=== PATIENT | female | born 1985 | race African-American/Black ===

== ENCOUNTER 2018-11-28 05:20 | Day surgery (SDC) | payer OTHER ==
[2018-11-19 10:26] VITALS: BMI 48.4
--- NOTE | 2018-11-28 07:16 | HP ---
[facility] - Chief Complaint Chief Complaint: This patient is admitted for a leep for moderate cervical uterine dyplasia. History of Present Illness: This patient had an abnormal pap test . This was followed by colposcopy revealing AJ-3. Patient is now aditted to treat this problem. History Source: Patient Limitations to Obtaining History: No Limitations - Past Medical History Allergies/Adverse Reactions: Allergies Allergy/AdvReac Type Severity Reaction Status Date / Time No Known Allergies Allergy Verified 11/28/18 06:42 [employer] CLAIMS ADJUSTER: No: Alzheimer's, CVA, Dementia, Migraine, Multiple Sclerosis, Peripheral Neuropathy, Parkinson's, Seizure, Syncope, TIA, Vertigo, Other Cardiovascular: No: AFIB, Aneurysm, Aortic Insufficiency, Aortic Stenosis, CAD, CHF, Deep Vein Thrombosis, HTN, Hyperlipdemia, NM, Mitral Insufficiency, Mitral Stenosis, Murmur, Pulmonary Hypertension, Other Pulmonary: No: Asthma, Bronchitis, Cancer, COPD, O2 Dependent, Pneumonia, Previously Intubated, Pulmonary Embolus, Pulmonary Fibrosis, Sleep Apnea, Other Gastrointestinal: No: Ascites, Cancer, Constipation, Crohn's Disease, Diverticulitis, Diverticulosis, Esophageal Varices, Gastritis, GERD, GI Bleed, Hemorrhoids, Hiatal Hernia, Inflamatory Bowel Disease, Irritable Bowel Disease, Pancreatitis, Peptic Ulcer Disease, Ulcerative Colitis, Other Hepatobiliary: No: Cirrhosis, Cholelithiasis, Cholecystitis, Choledocholithiasis , Hepatitis A, Hepatitis B, Hepatitis C, Other Renal/: No: Renal Failure, Renal Inusuff, BPH, Cancer, Hematuria, Hemodialysis , Neurogenic Bladder, Renal Calculi, UTI, Other Reproductive: No: Ectopic , Endometriosis, Fibroids, PID, Polycystic Ovary Syndrome, Postmenopausal, Other ...LMP: 11/14/18 ...LMP Comment: regular ...: No ...: 1 ...Para: 1 Heme/Onc: No: Anemia, B12 Deficiency, Bleeding Disorder, Cancer, Current Chemotherapy, Current Radiation Therapy, Hemochromatosis, Hypercoaguable State, Myeloproliferative Synd, Sickle Cell Disease, Sickle Cell Trait, Thrombocytopenia, Other Infectious Disease: No: AIDS, C-Diff, Herpes Zoster, HIV, MRSA, STD's, Tuberculosis, VREF, Other Musculoskeletal: No: Bursitis, Chronic low back pain, Hemiparesis, Hemiplegia, Osteoarthritis, Paraplegia, Other Rheumatology: No: Fibromyalgia, Gout, Lupus, Rheumatoid Arthritis, Sarcoidosis, Vasculitis, Other ENT: No: Allergic Rhinitis, Sinusitis, Other Endocrine: No: [place]'s Disease, [place]'s Disease, Diabetes Insipidus, Diabetes Mellitus, Hyperparathyroidism, Hyperthyroidism, Hypothyroidism, Osteopenia, SIADH, Other Dermatology: No: Basal Cell, Cellulitis, Eczema, Melanoma, Psoriasis, Squamous Cell, Other (1 C/S) - Current Medications Current Medications: Home Medications Medication Instructions Recorded Tylenol .Extra-Strength - 1,000 mg PO PRN PRN 11/19/18 Scapoline Patch 1 patch TD PRN PRN 11/28/18 Satellite Physical Exam - Physical Examination Vital Signs: Vital Signs Period Temp Pulse Resp BP Sys/Valdovinos Pulse Ox Last 24 Hr 97.9 F 80 18 116/68 98 General Appearance: Well Nourished, Well Developed, Alert & Oriented x3 ENT: Clear, No Discharge, No masses Lung: Clear to auscultation Heart: Regular rate & rhythm, Normal S1, Normal S2 Breasts: Soft, Non-Tender, No masses bilaterally Abdomen: Soft, No tenderness, No CVA Extremities: No edema, No tenderness/swelling Pelvic Exam: Within normal limits External Genitalia, Within normal limits Vagina, Within normal limits Cervix, Within normal limits Uterus, Within normal limits [facility]: Intact, Alert, Oriented Satellite Impression/Plan - Impression/Plan Impression: cervical uterine moderate dysplasia . Operative Procedure: Leep cone biopsy Date to be Performed: 11/28/18
[2018-11-28] MEDS ORDERED: MIDAZOLAM HCL 2 MG/2 ML SINGLE DOSE VIAL ONE (07:44)
[2018-11-28] MEDS ORDERED: ceFAZolin SODIUM 1 GM VIAL IVPB ONE (07:45)
[2018-11-28] MEDS ORDERED: SUCCINYLCHOLINE CHLORIDE 200 MG/10 ML SYRINGE ONE (07:49)
[2018-11-28] MEDS ORDERED: PROPOFOL 20 ML ONE ×3 (07:49)
[2018-11-28] MEDS ORDERED: ONDANSETRON 4 MG/2 ML VIAL IVPUSH PRN (08:38)
[2018-11-28] MEDS ORDERED: oxyCODONE HCL 5 MG TABLET PO PRN (08:38)
[2018-11-28] MEDS ORDERED: PROMETHAZINE HCL 25 MG/1 ML VIAL IVPUSH PRN (08:38)
[2018-11-28] MEDS ORDERED: LACTATED RINGERS SOLUTION 1,000 ML IV SCH (08:45)
--- NOTE | 2018-11-28 08:59 | OP ---
DATE OF OPERATION: 11/28/2018 PREOPERATIVE DIAGNOSIS: Moderate cervical dysplasia. POSTOPERATIVE DIAGNOSIS: Moderate cervical dysplasia. OPERATIVE PROCEDURE: Loop electrosurgical excision procedure cone biopsy. SURGEON: Shey Winter MD ANESTHESIA: A fractional type of anesthesia given by the anesthesiologist. ESTIMATED BLOOD LOSS: Approximately 2 mL. The patient was brought to the operating room, placed in a supine position, given anesthesia by the anesthesiologist, placed in the lithotomy position. The patient was prepped and draped in the usual manner for LEEP cone biopsy. A speculum was placed into the vagina. The cervix was exposed. Using a 1 x 2 loop at 50/50 wattage, a LEEP was carried out of the cervical tissue. Prior to that, the transformation zone was revealed using colposcopy. The patient tolerated the procedure well. The loop procedure was followed by a cauterization of the cervix using a 5-mm curette. This was done to enhance the LEEP procedure and also to control hemostasis. The patient did well. Hemostasis was good. The blood loss was approximately 2 mL. The patient was then transferred to the recovery room after the completion of the operation, and she was transferred in good condition. SHEY WINTER M.D. [id number]
[2018-11-28 10:51] VITALS: BP 122/66; PULSE 68; TEMP 97.5
--- NOTE | 2018-12-02 13:54 | PATH ---
Surgical Pathology Report Patient Name: NESSA BRAUN [facility]. Rec. #: [id number] /Age/Gender: 1985 (Age: 33) / F Account: [id number] Location: [facility] SURGICAL Taken: 11/28/2018 Received: 11/28/2018 Reported: 12/02/2018 Physicians: Scott Winter M.D. Specimen(s) Received CERVIX Clinical History Moderate cervical dysplasia Final Diagnosis CERVIX, LOOP ELECTROSURGICAL EXCISION PROCEDURE (LEEP)/CONE BIOPSY: CERVICAL SQUAMOUS AND ENDOCERVICAL MUCOSA WITH HIGH GRADE SQUAMOUS INTRAEPITHELIAL LESION (CERVICAL INTRAEPITHELIAL NEOPLASIA 2/ AJ 2); AREAS OF LOW GRADE SQUAMOUS INTRAEPITHELIAL LESION ALSO PRESENT. SURGICAL RESECTION MARGINS: FOCALLY POSITIVE FOR HIGH GRADE DYSPLASIA. TRANSFORMATION ZONE: NOT PRESENT. SEE COMMENT. Comment: Immunohistochemical stains performed at [place], [place] ([id number]) and interpreted at [facility] show p16 is diffusely and strongly positive. Proliferative marker for ki-67 utilized to evaluate this case. . Positive and negative controls (internal if applicable) show appropriate results. Electronically Signed Maryanne Childers M.D. Gross Description Received in formalin labeled "cervix" are 2 irregular fragments of white-nugent soft tissue consistent with portions of cervix measuring 0.7 x 0.6 x 0.3 and 1.5 x 1 x 0.3 cm. Mucosal surface is unremarkable. The surgical margin is inked in black. Cut section shows no gross lesions. The specimen is serially sectioned and entirely submitted as follows: 1- smaller fragment, 2-3 larger fragment. SELVINSJazmine/11/28/2018 sanselvin/11/28/2018
== END 2018-11-28 10:45 | disposition home or self-care (01) ==
LOC: JASU-SURG 05:20
PROVIDERS: ATTEND Obstetrics & Gynecology
PROC: 0UBC7ZX Excision of Cervix, Via Natural or Artificial Opening, Diagnostic (ICD-10-PCS; principal; 2018-11-28 07:30)
DX: N87.1 Moderate cervical dysplasia (principal)
CPT/HCPCS: 36415; 84703; 86850; 86870; 86900; 86901; 86902; 88307-TC; 94760